=== PATIENT | female | born 1975 | race Caucasian/White ===

== ENCOUNTER 2017-09-19 12:09 | Inpatient (IN) | payer OTHER ==
[~2017-09-19] VITALS: Ht 165.1 cm; Wt 151.9 kg
[2017-09-19] MEDS ORDERED: ASPIRIN 81 MG TABLET CHEW ONE (12:46)
[2017-09-19] MEDS ORDERED: ASPIRIN 81 MG TABLET CHEW PO ONE (13:00)
[2017-09-19 13:16] LABS: MEAN CORPUSCULAR HEMOGLOBIN 21.4 pg (27.0-34.8); MEAN CORPUSCULAR HGB CONC 30.8 g/dL (32.4-35.8); MEAN CORPUSCULAR VOLUME 69.6 fL (80-100); MEAN PLATELET VOLUME 8.5 fL (7.4-10.4); PLATELET COUNT 338 x10^3/uL (130-400); RED BLOOD COUNT 4.58 x10^6/uL (3.82-5.3); RED CELL DISTRIBUTION WIDTH 20.5 % (9.6-15.2)
[2017-09-19 13:21] LABS: ALANINE AMINOTRANSFERASE 24 U/L (12-78); ALBUMIN 2.4 g/dL (3.4-5.0); ANION GAP 7 mmol/L (5-15); CALCIUM 8.7 mg/dL (8.5-10.1); CHLORIDE 108 mmol/L (98-107); CREATININE 2.26 mg/dL (0.55-1.02)
[2017-09-19 13:26] LABS: ALKALINE PHOSPHATASE 116 U/L (45-117); BASOPHILS # (AUTO) 0.14 x10^3/uL (0-0.1); BASOPHILS % (AUTO) 2 % (0-1); BILIRUBIN,TOTAL 0.5 mg/dL (0.2-1.0); EOSINOPHILS # (AUTO) 0.21 x10^3/uL (0-0.4); EOSINOPHILS % (AUTO) 3 % (1-7); LYMPHOCYTES # (AUTO) 1.74 x10^3/uL (1-3.4); LYMPHOCYTES % (AUTO) 21 % (22-44); MD MORPH REVIEW ONLY; MONOCYTES # (AUTO) 0.52 x10^3/uL (0.2-0.8); MONOCYTES % (AUTO) 6 % (2-9); NEUTROPHILS # (AUTO) 5.83 x10^3/uL (1.8-6.8); NEUTROPHILS % (AUTO) 69 % (42-75); TOTAL PROTEIN 7.1 g/dL (6.4-8.2); TROPONIN I 0.021 ng/mL (0.000-0.045)
[2017-09-19 13:27] LABS: ANISOCYTOSIS 2+; MICROCYTOSIS 1+; POLYCHROMASIA 1+
[2017-09-19 13:28] LABS: <PLATELET ESTIMATE> ADEQUATE; <PLT MORPHOLOGY> NORMAL PLT MORPH
[2017-09-19] MEDS ORDERED: SODIUM CHLORIDE FLUSH 10ML SYR IVF ONE (14:00)
[2017-09-19] MEDS ORDERED: FUROSEMIDE 40 MG/4 ML IV ONE (14:00)
[2017-09-19] MEDS ORDERED: ALPR1TAB5 PO (14:49)
[2017-09-19] MEDS ORDERED: AMLO10TA2 PO (14:49)
[2017-09-19] MEDS ORDERED: VALS1TAB24 PO (14:49)
[2017-09-19] MEDS ORDERED: METF-688 PO (14:49)
[2017-09-19] MEDS ORDERED: FUROSEMIDE 40 MG/4 ML ONE (14:51)
[2017-09-19 15:28] LABS: FREE T4 (FREE THYROXINE) 1.48 ng/dL (0.76-1.46); THYROID STIMULATING HORMONE 2.31 mIU/L (0.358-3.740)
[2017-09-19] MEDS ORDERED: LORazepam 0.5MG TABLET PO PRN (15:30)
[2017-09-19] MEDS ORDERED: ACETAMINOPHEN 325 MG TABLET PO PRN (15:30)
[2017-09-19] MEDS ORDERED: TRAZODONE 50MG TABLET PO PRN (15:30)
[2017-09-19] MEDS ORDERED: BISACODYL 10 MG SUPP PR PRN (15:30)
[2017-09-19 15:52] LABS: INTERNATIONAL NORMALIZED RATIO 0.97 (0.93-1.1); PROTHROMBIN TIME 10.1 Seconds (9.6-11.5)
[2017-09-19 18:00] VITALS: BP 187/100
[2017-09-19] MEDS: HEPARIN 5,000 UNITS/ML, 1ML SQ SCH (18:08)
[2017-09-19 18:19] VITALS: BP 187/106
[2017-09-19 18:42] VITALS: BP 185/100
[2017-09-19 20:01] VITALS: BP 176/103
[2017-09-19 20:01] LABS: AMPHETAMINE SCREEN, URINE Negative (Negative); BARBITURATE SCREEN, URINE Negative (Negative); BENZODIAZEPINE SCREEN, URINE Negative (Negative); CANNABINOID SCREEN, URINE Negative (Negative); COCAINE SCREEN, URINE Negative (Negative); METHADONE SCREEN, URINE Negative (Negative); OPIATE SCREEN, URINE Negative (Negative); TOTAL PROTEIN,URINE RANDOM 177 mg/dL (0-12)
[2017-09-19 20:02] LABS: CREATININE,URINE RANDOM < 13.00 mg/dL; PROTEIN/CREATININE RATIO,URINE 13615 (0-200)
[2017-09-19 20:18] LABS: OCCULT BLOOD NEGATIVE (NEGATIVE)
[2017-09-19] MEDS: SODIUM CHLORIDE FLUSH 10ML SYR IVF SCH (21:16)
[2017-09-19 21:25] VITALS: BP 163/90
[2017-09-19 23:35] LABS: MICROSCOPIC AUTO
[2017-09-19 23:36] LABS: CULTURE INDICATED? NO
[2017-09-20] VITALS (7 sets, daily range): BP systolic 110–196; BP diastolic 74–110
[2017-09-20] MEDS ORDERED: hydrALAzine 20 MG/ML, 1ML ONE (04:48)
[2017-09-20] MEDS: HEPARIN 5,000 UNITS/ML, 1ML SQ SCH (04:54)
[2017-09-20] MEDS: hydrALAzine 20 MG/ML, 1ML IV PRN ×3 (04:54→23:27)
[2017-09-20 05:18] LABS: CHLORIDE 109 mmol/L (98-107)
[2017-09-20 05:24] LABS: % IRON SATURATION 7 % (20-55); ALANINE AMINOTRANSFERASE 22 U/L (12-78); ALKALINE PHOSPHATASE 101 U/L (45-117); ANION GAP 9 mmol/L (5-15); BILIRUBIN,TOTAL 0.4 mg/dL (0.2-1.0); CALCIUM 8.3 mg/dL (8.5-10.1); CREATININE 2.31 mg/dL (0.55-1.02); IRON LEVEL 20 mcg/dL (50-170); TOTAL IRON BINDING CAPACITY 286 mcg/dL (250-450); TOTAL PROTEIN 6.4 g/dL (6.4-8.2)
[2017-09-20 05:47] LABS: ABSOLUTE RETICS # 0.108 x10^6/uL (0.5-2.5); RETICULOCYTE COUNT % 2.78 % (0.5-1.5)
[2017-09-20 05:50] LABS: BASOPHILS # (AUTO) 0.01 x10^3/uL (0-0.1); BASOPHILS % (AUTO) 0 % (0-1); EOSINOPHILS # (AUTO) 0.18 x10^3/uL (0-0.4); EOSINOPHILS % (AUTO) 3 % (1-7); LYMPHOCYTES # (AUTO) 1.49 x10^3/uL (1-3.4); LYMPHOCYTES % (AUTO) 25 % (22-44); MD NO; MEAN CORPUSCULAR HEMOGLOBIN 21.9 pg (27.0-34.8); MEAN CORPUSCULAR HGB CONC 31.2 g/dL (32.4-35.8); MEAN CORPUSCULAR VOLUME 70.3 fL (80-100); MEAN PLATELET VOLUME 8.4 fL (7.4-10.4); MONOCYTES % (AUTO) 7 % (2-9); NEUTROPHILS # (AUTO) 3.93 x10^3/uL (1.8-6.8); NEUTROPHILS % (AUTO) 65 % (42-75); PLATELET COUNT 268 x10^3/uL (130-400); RED BLOOD COUNT 3.88 x10^6/uL (3.82-5.3); RED CELL DISTRIBUTION WIDTH 21.4 % (9.6-15.2)
[2017-09-20 06:00] LABS: HEMOGLOBIN A1C 9.5 % (4.2-6.3)
[2017-09-20] MEDS: SODIUM CHLORIDE FLUSH 10ML SYR IVF SCH ×2 (09:19→20:14)
[2017-09-20] MEDS: PANTOPROZOLE 40MG TABLET PO SCH (09:19)
[2017-09-20 10:53] LABS: HCT (SEDRATE) 28.9 % (34.6-47.8)
[2017-09-20 10:55] LABS: CALCIUM 8.5 mg/dL (8.5-10.1)
[2017-09-20] MEDS: IRON SUCROSE COMPLEX 100MG/5ML IV SCH (11:16)
[2017-09-20] MEDS: VALSARTAN 160 MG TABLET PO SCH ×2 (11:17→20:14)
[2017-09-20] MEDS: METOPROLOL TARTRATE 25 MG TABLET PO SCH ×2 (11:17→18:13)
[2017-09-20] MEDS: INSULIN LISPRO 100 UNITS/ML, PEN SQ-INSULIN SCH ×3 (12:17→20:14)
[2017-09-20 18:34] LABS: ANA SCREEN NEGATIVE (Negative)
[2017-09-21] VITALS (7 sets, daily range): BP systolic 122–188; BP diastolic 75–103
[2017-09-21] MEDS: METOPROLOL TARTRATE 25 MG TABLET PO SCH (05:21)
[2017-09-21 05:55] LABS: BASOPHILS # (AUTO) 0.01 x10^3/uL (0-0.1); BASOPHILS % (AUTO) 0 % (0-1); EOSINOPHILS # (AUTO) 0.14 x10^3/uL (0-0.4); EOSINOPHILS % (AUTO) 2 % (1-7); LYMPHOCYTES # (AUTO) 1.33 x10^3/uL (1-3.4); LYMPHOCYTES % (AUTO) 21 % (22-44); MD NO; MEAN CORPUSCULAR HEMOGLOBIN 21.7 pg (27.0-34.8); MEAN CORPUSCULAR HGB CONC 31.2 g/dL (32.4-35.8); MEAN CORPUSCULAR VOLUME 69.4 fL (80-100); MEAN PLATELET VOLUME 8.7 fL (7.4-10.4); MONOCYTES % (AUTO) 8 % (2-9); NEUTROPHILS # (AUTO) 4.51 x10^3/uL (1.8-6.8); NEUTROPHILS % (AUTO) 70 % (42-75); PLATELET COUNT 272 x10^3/uL (130-400); RED BLOOD COUNT 3.92 x10^6/uL (3.82-5.3); RED CELL DISTRIBUTION WIDTH 21.1 % (9.6-15.2)
[2017-09-21 06:06] LABS: ALBUMIN 2.1 g/dL (3.4-5.0); ANION GAP 8 mmol/L (5-15); CALCIUM 8.1 mg/dL (8.5-10.1); CHLORIDE 107 mmol/L (98-107); CREATININE 2.43 mg/dL (0.55-1.02)
[2017-09-21 06:10] LABS: ALANINE AMINOTRANSFERASE 25 U/L (12-78); ALKALINE PHOSPHATASE 114 U/L (45-117); BILIRUBIN,TOTAL 0.4 mg/dL (0.2-1.0); TOTAL PROTEIN 6.3 g/dL (6.4-8.2)
[2017-09-21] MEDS: INSULIN LISPRO 100 UNITS/ML, PEN SQ-INSULIN SCH ×4 (07:00→20:46)
[2017-09-21] MEDS: PANTOPROZOLE 40MG TABLET PO SCH (08:30)
[2017-09-21] MEDS: VALSARTAN 160 MG TABLET PO SCH ×2 (08:30→20:46)
[2017-09-21] MEDS: SODIUM CHLORIDE FLUSH 10ML SYR IVF SCH ×2 (08:33→20:45)
[2017-09-21] MEDS ORDERED: ERGOCALCIFEROL 50,000 UNIT CAPSULE PO SCH (10:00)
[2017-09-21] MEDS: FUROSEMIDE 40 MG TABLET PO SCH (11:18)
[2017-09-21] MEDS: IRON SUCROSE COMPLEX 100MG/5ML IV SCH (11:18)
[2017-09-21] MEDS ORDERED: MIDAZOLAM 1 MG/ML, 2ML ONE ×2 (12:59)
[2017-09-21] MEDS ORDERED: FENTANYL PF 100 MCG/2ML ONE (12:59)
[2017-09-21] MEDS ORDERED: NALOXONE 1 MG/ML, 2ML ONE (12:59)
[2017-09-21] MEDS ORDERED: FLUMAZENIL 0.1 MG/1 ML, 5ML ONE (12:59)
[2017-09-21] MEDS: AMLODIPINE 5 MG TABLET PO SCH (15:03)
[2017-09-21] MEDS: hydrALAzine 20 MG/ML, 1ML IV PRN (17:07)
[2017-09-21] MEDS: METOPROLOL TARTRATE 50 MG TABLET PO SCH (18:05)
[2017-09-21] MEDS: INSULIN GLARGINE 100 UNITS/ML, PEN SQ-INSULIN SCH (20:46)
[2017-09-22] VITALS (9 sets, daily range): BP systolic 128–207; BP diastolic 70–97
[2017-09-22] MEDS: METOPROLOL TARTRATE 50 MG TABLET PO SCH ×2 (05:45→18:00)
[2017-09-22 06:12] LABS: CHLORIDE 106 mmol/L (98-107)
[2017-09-22 06:16] LABS: BASOPHILS # (AUTO) 0.06 x10^3/uL (0-0.1); BASOPHILS % (AUTO) 1 % (0-1); EOSINOPHILS # (AUTO) 0.25 x10^3/uL (0-0.4); EOSINOPHILS % (AUTO) 3 % (1-7); LYMPHOCYTES # (AUTO) 1.75 x10^3/uL (1-3.4); LYMPHOCYTES % (AUTO) 21 % (22-44); MD NO; MEAN CORPUSCULAR HEMOGLOBIN 22.2 pg (27.0-34.8); MEAN CORPUSCULAR HGB CONC 31.3 g/dL (32.4-35.8); MEAN CORPUSCULAR VOLUME 70.9 fL (80-100); MEAN PLATELET VOLUME 8.4 fL (7.4-10.4); MONOCYTES % (AUTO) 7 % (2-9); NEUTROPHILS % (AUTO) 68 % (42-75); PLATELET COUNT 295 x10^3/uL (130-400); RED BLOOD COUNT 3.92 x10^6/uL (3.82-5.3); RED CELL DISTRIBUTION WIDTH 21.8 % (9.6-15.2)
[2017-09-22 06:18] LABS: ALANINE AMINOTRANSFERASE 31 U/L (12-78); ALKALINE PHOSPHATASE 92 U/L (45-117); ANION GAP 9 mmol/L (5-15); BILIRUBIN,TOTAL 0.6 mg/dL (0.2-1.0); CREATININE 2.57 mg/dL (0.55-1.02); TOTAL PROTEIN 5.8 g/dL (6.4-8.2)
[2017-09-22] MEDS ORDERED: LORazepam 2 MG/ML, 1ML IVPush ONE ×2 (08:00→13:30)
[2017-09-22] MEDS: INSULIN LISPRO 100 UNITS/ML, PEN SQ-INSULIN SCH ×4 (08:07→20:20)
[2017-09-22] MEDS: IRON SUCROSE COMPLEX 100MG/5ML IV SCH (10:23)
[2017-09-22] MEDS: FUROSEMIDE 40 MG TABLET PO SCH (10:23)
[2017-09-22] MEDS: VALSARTAN 160 MG TABLET PO SCH ×2 (10:23→20:17)
[2017-09-22] MEDS: PANTOPROZOLE 40MG TABLET PO SCH (10:23)
[2017-09-22] MEDS: AMLODIPINE 5 MG TABLET PO SCH ×2 (10:23→20:17)
[2017-09-22] MEDS: SODIUM CHLORIDE FLUSH 10ML SYR IVF SCH ×2 (10:27→20:18)
[2017-09-22] MEDS ORDERED: FENTANYL PF 100 MCG/2ML ONE (14:41)
[2017-09-22] MEDS ORDERED: MIDAZOLAM 1 MG/ML, 2ML ONE (14:41)
[2017-09-22] MEDS: hydrALAzine 20 MG/ML, 1ML IV PRN (16:08)
[2017-09-22] MEDS: ONDANSETRON 2MG/ML, 2ML IVPush PRN (16:50)
[2017-09-22] MEDS ORDERED: hydrALAzine 20 MG/ML, 1ML IV ONE (17:30)
[2017-09-22] MEDS ORDERED: MORPHINE SULFATE 4 MG/ML, 1ML IVPush ONE (17:30)
[2017-09-22] MEDS ORDERED: METOPROLOL 1 MG/ML, 5ML IVPush ONE (18:00)
[2017-09-22] MEDS ORDERED: PROMETHAZINE 25 MG/ML, 1ML IM ONE (20:00)
[2017-09-22] MEDS: INSULIN GLARGINE 100 UNITS/ML, PEN SQ-INSULIN SCH (20:20)
[2017-09-23 01:33] VITALS: BP 159/86
[2017-09-23] MEDS: ONDANSETRON 2MG/ML, 2ML IVPush PRN (01:41)
[2017-09-23 05:57] VITALS: BP 147/75
[2017-09-23] MEDS: METOPROLOL TARTRATE 50 MG TABLET PO SCH (05:59)
[2017-09-23] MEDS: SODIUM CHLORIDE 0.9% 500 ML IV SCH ×2 (06:47→07:44)
[2017-09-23] MEDS ORDERED: SODIUM CHLORIDE 0.9%, 250ML IVBOLUS ONE (07:00)
[2017-09-23 08:30] VITALS: BP 126/74
[2017-09-23] MEDS: VALSARTAN 160 MG TABLET PO SCH (08:45)
[2017-09-23] MEDS: PANTOPROZOLE 40MG TABLET PO SCH (08:46)
[2017-09-23] MEDS: AMLODIPINE 5 MG TABLET PO SCH (08:46)
[2017-09-23] MEDS: FUROSEMIDE 40 MG TABLET PO SCH (08:47)
[2017-09-23] MEDS: INSULIN LISPRO 100 UNITS/ML, PEN SQ-INSULIN SCH ×2 (08:48→11:00)
[2017-09-23] MEDS: SODIUM CHLORIDE FLUSH 10ML SYR IVF SCH (08:53)
[2017-09-23] MEDS ORDERED: VALS160T3 PO (10:16)
[2017-09-23] MEDS ORDERED: ERGO500017 PO (10:16)
[2017-09-23] MEDS ORDERED: FURO40TA6 PO (10:16)
[2017-09-23] MEDS ORDERED: FERR324T5 PO (10:16)
[2017-09-23] MEDS ORDERED: INSU100I13 SQ-INSULIN (10:16)
[2017-09-23] MEDS ORDERED: METO50TA82 PO (10:16)
[2017-09-23] MEDS ORDERED: AMLO5TAB2 PO (10:16)
[2017-09-23] MEDS ORDERED: FLU VACC QS2017-18 (36MOS+) UP/PF 0.5 ML IM-VACC ONE (11:30)
[2017-09-23] MEDS: IRON SUCROSE COMPLEX 100MG/5ML IV SCH (11:33)
== END 2017-09-23 12:15 | disposition home or self-care (01) | DRG 682 ==
LOC: ED 15:20 → EDIP 15:21 → ED 15:44 → 4WST 17:39 → DCLOUNGE 09-23 12:10
PROVIDERS: ADMIT Internal Medicine; ATTEND Hospitalist
PROC: 0TB13ZX Excision of Left Kidney, Percutaneous Approach, Diagnostic (ICD-10-PCS; principal; 2017-09-22)
DX: N17.9 Acute kidney failure, unspecified (principal); E43 Unspecified severe protein-calorie malnutrition; E11.22 Type 2 diabetes mellitus with diabetic chronic kidney disease; I16.9 Hypertensive crisis, unspecified; Z68.43 Body mass index [BMI] 50.0-59.9, adult; D50.9 Iron deficiency anemia, unspecified; E66.01 Morbid (severe) obesity due to excess calories; N25.0 Renal osteodystrophy; E11.65 Type 2 diabetes mellitus with hyperglycemia; F41.9 Anxiety disorder, unspecified; Z53.8 Procedure and treatment not carried out for other reasons; I12.9 Hypertensive chronic kidney disease with stage 1 through stage 4 chronic kidney disease, or unspecified chronic kidney disease; N18.9 Chronic kidney disease, unspecified; Z83.2 Family history of diseases of the blood and blood-forming organs and certain disorders involving the immune mechanism; Z91.19 Patient's noncompliance with other medical treatment and regimen; Z71.3 Dietary counseling and surveillance; Z23 Encounter for immunization
CPT/HCPCS: 36415; 50200; 71046; 76770; 76830; 77012; 80053; 80074; 80307; 81001; 82043; 82272; 82306; 82310; 82330; 82570; 82728; 82962; 83036; 83540; 83550; 83735; 83880; 83970; 84100; 84155; 84156; 84165; 84166; 84439; 84443; 84484; 84550; 84702; 85025; 85045; 85610; 85651; 86038; 86160; 86162; 86225; 86430; 88300; 88329; 90686; 93005; 93306; 96374; 99156; 99157; J1644; J1756; J1940; J2250; J2405; J2550; J3010; J0360; J1815; J2060; J2310; J7040; J7050

== ENCOUNTER 2018-01-18 10:44 | Inpatient (IN) | payer OTHER ==
[~2018-01-18] VITALS: Ht 167.6 cm; Wt 116.7 kg
[~2018-01-18 10:44] MED LIST: ALPR1TAB5 PO; AMLO10TA2 PO; AMLO5TAB2 PO; ERGO500017 PO; FERR324T5 PO; FURO40TA6 PO; INSU100I13 SQ-INSULIN; METF-688 PO; METO50TA82 PO; METO5TAB57 PO; ONDA4TAB10 PO; VALS160T3 PO; VALS1TAB24 PO
[2018-01-18 11:30] LABS: BASOPHILS # (AUTO) 0.05 x10^3/uL (0-0.1); BASOPHILS % (AUTO) 1 % (0-1); EOSINOPHILS # (AUTO) 0.03 x10^3/uL (0-0.4); EOSINOPHILS % (AUTO) 0 % (1-7); LYMPHOCYTES # (AUTO) 1.64 x10^3/uL (1-3.4); LYMPHOCYTES % (AUTO) 14 % (22-44); MD NO; MEAN CORPUSCULAR HEMOGLOBIN 27.6 pg (27.0-34.8); MEAN CORPUSCULAR HGB CONC 33.5 g/dL (32.4-35.8); MEAN CORPUSCULAR VOLUME 82.3 fL (80-100); MEAN PLATELET VOLUME 7.5 fL (7.4-10.4); MONOCYTES # (AUTO) 0.87 x10^3/uL (0.2-0.8); MONOCYTES % (AUTO) 8 % (2-9); NEUTROPHILS # (AUTO) 9.07 x10^3/uL (1.8-6.8); NEUTROPHILS % (AUTO) 78 % (42-75); PLATELET COUNT 558 x10^3/uL (130-400); RED BLOOD COUNT 4.26 x10^6/uL (3.82-5.3); RED CELL DISTRIBUTION WIDTH 14.9 % (9.6-15.2)
[2018-01-18 11:45] LABS: CHLORIDE 98 mmol/L (98-107)
[2018-01-18 11:52] LABS: ALANINE AMINOTRANSFERASE 46 U/L (12-78); ALBUMIN 2.2 g/dL (3.4-5.0); ALKALINE PHOSPHATASE 442 U/L (45-117); ANION GAP 13 mmol/L (5-15); CALCIUM 9.4 mg/dL (8.5-10.1)
[2018-01-18 12:07] LABS: INTERNATIONAL NORMALIZED RATIO 0.97 (0.93-1.1); PROTHROMBIN TIME 10.1 Seconds (9.6-11.5)
[2018-01-18] MEDS ORDERED: SPIR25TA3 PO (12:37)
[2018-01-18] MEDS ORDERED: FURO80TA77 PO (12:37)
[2018-01-18] MEDS ORDERED: HYDROXYZINE (12:37)
[2018-01-18] MEDS ORDERED: VALS320T2 PO (12:37)
[2018-01-18] MEDS ORDERED: AMLO10TA2 PO (12:37)
[2018-01-18] MEDS ORDERED: INSU500V SQ (12:37)
[2018-01-18] MEDS ORDERED: ATOR-2 PO (12:38)
[2018-01-18] MEDS ORDERED: PROMETHAZINE 25 MG/ML, 1ML IM ONE (14:00)
[2018-01-18] MEDS ORDERED: GLUCAGON 1 MG IM PRN (14:30)
[2018-01-18] MEDS ORDERED: DOCUSATE 100 MG CAPSULE PO PRN (14:30)
[2018-01-18] MEDS ORDERED: DEXTROSE 50%, 50ML SYRINGE IVPush PRN (14:30)
[2018-01-18] MEDS ORDERED: BISACODYL 10 MG SUPP PR PRN (14:30)
[2018-01-18] MEDS ORDERED: POLYETHYLENE GLYCOL 17 GM PACKET PO PRN (14:30)
[2018-01-18] MEDS ORDERED: DEXTROSE 4 GM TAB.CHEW PO PRN (14:30)
[2018-01-18 14:45] VITALS: BP 118/73
[2018-01-18] MEDS ORDERED: PNEUMOCOCCAL 23 VACCINE IM-VACC ONE (15:30)
[2018-01-18 15:48] LABS: HEMOGLOBIN A1C 8.6 % (4.2-6.3)
[2018-01-18] MEDS: INSULIN LISPRO 100 UNITS/ML, PEN SQ-INSULIN SCH ×2 (16:00→21:00)
[2018-01-18] MEDS: SODIUM BICARBONATE 8.4% 150 MEQ in DEXTROSE 5% 1,000 ML IV SCH (16:49)
[2018-01-18] MEDS: METOPROLOL TARTRATE 50 MG TABLET PO SCH (17:45)
[2018-01-18 19:00] VITALS: BP 112/72
[2018-01-18 19:36] LABS: CULTURE INDICATED? YES; MICROSCOPIC INDICATED
[2018-01-18] MEDS: SODIUM CHLORIDE FLUSH 10ML SYR IVF SCH (21:00)
[2018-01-19 01:06] LABS: STOOL FOR LEUKOCYTES NONE SEEN (NEGATIVE)
[2018-01-19 01:08] LABS: OCCULT BLOOD NEGATIVE (NEGATIVE)
[2018-01-19 01:43] VITALS: BP 111/69
[2018-01-19 05:19] LABS: ALBUMIN 1.6 g/dL (3.4-5.0); ANION GAP 11 mmol/L (5-15); CALCIUM 8.1 mg/dL (8.5-10.1); CHLORIDE 99 mmol/L (98-107)
[2018-01-19 05:25] LABS: % IRON SATURATION 24 % (20-55); ALANINE AMINOTRANSFERASE 34 U/L (12-78); ALKALINE PHOSPHATASE 324 U/L (45-117); BILIRUBIN,TOTAL 0.7 mg/dL (0.2-1.0); CREATININE 4.07 mg/dL (0.55-1.02); IRON LEVEL 24 mcg/dL (50-170); TOTAL IRON BINDING CAPACITY 100 mcg/dL (250-450); TOTAL PROTEIN 7.2 g/dL (6.4-8.2)
[2018-01-19 05:33] LABS: BASOPHILS % (AUTO) 0 % (0-1); EOSINOPHILS # (AUTO) 0.03 x10^3/uL (0-0.4); EOSINOPHILS % (AUTO) 0 % (1-7); LYMPHOCYTES # (AUTO) 1.76 x10^3/uL (1-3.4); LYMPHOCYTES % (AUTO) 19 % (22-44); MD NO; MEAN CORPUSCULAR HEMOGLOBIN 27.4 pg (27.0-34.8); MEAN CORPUSCULAR HGB CONC 33.4 g/dL (32.4-35.8); MEAN CORPUSCULAR VOLUME 82.1 fL (80-100); MEAN PLATELET VOLUME 7.5 fL (7.4-10.4); MONOCYTES % (AUTO) 10 % (2-9); NEUTROPHILS % (AUTO) 71 % (42-75); PLATELET COUNT 426 x10^3/uL (130-400); RED BLOOD COUNT 3.56 x10^6/uL (3.82-5.3); RED CELL DISTRIBUTION WIDTH 14.8 % (9.6-15.2)
[2018-01-19] MEDS: METOPROLOL TARTRATE 50 MG TABLET PO SCH ×2 (05:46→16:57)
[2018-01-19] MEDS: SODIUM BICARBONATE 8.4% 150 MEQ in DEXTROSE 5% 1,000 ML IV SCH ×3 (06:16→23:16)
[2018-01-19 06:27] LABS: CLOSTRIDIUM DIFFICILE ANTIGEN NEGATIVE; CLOSTRIDIUM DIFFICILE TOXIN NEGATIVE (Negative)
[2018-01-19] MEDS: INSULIN LISPRO 100 UNITS/ML, PEN SQ-INSULIN SCH ×4 (07:00→23:27)
[2018-01-19 07:29] VITALS: BP 122/73
[2018-01-19] MEDS: SODIUM CHLORIDE FLUSH 10ML SYR IVF SCH ×2 (09:00→23:17)
[2018-01-19] MEDS: TEMPLATE NON-FORMULARY MED. (Amlodipine Besylate (Amlodipine Besylate**) 10 MG) PO SCH (09:00)
[2018-01-19] MEDS: FAMOTIDINE 20 MG TABLET PO SCH (09:00)
[2018-01-19] MEDS ORDERED: LOPERAMIDE 2 MG CAPSULE PO PRN (11:00)
[2018-01-19] MEDS ORDERED: LIDOCAINE 2%-EPI 1:100K, 20ML INFIL ONE (12:00)
[2018-01-19 14:00] VITALS: BP 131/76
[2018-01-19 20:51] VITALS: BP_SYST 106; BP_DIAS 58; BP_DIAS 68
[2018-01-20 01:55] VITALS: BP 127/77
[2018-01-20 05:03] LABS: BASOPHILS # (AUTO) 0.03 x10^3/uL (0-0.1); BASOPHILS % (AUTO) 0 % (0-1); EOSINOPHILS # (AUTO) 0.05 x10^3/uL (0-0.4); EOSINOPHILS % (AUTO) 1 % (1-7); LYMPHOCYTES # (AUTO) 1.35 x10^3/uL (1-3.4); LYMPHOCYTES % (AUTO) 14 % (22-44); MD NO; MEAN CORPUSCULAR HEMOGLOBIN 27.8 pg (27.0-34.8); MEAN CORPUSCULAR HGB CONC 33.7 g/dL (32.4-35.8); MEAN CORPUSCULAR VOLUME 82.5 fL (80-100); MEAN PLATELET VOLUME 7.6 fL (7.4-10.4); MONOCYTES % (AUTO) 9 % (2-9); NEUTROPHILS # (AUTO) 7.42 x10^3/uL (1.8-6.8); NEUTROPHILS % (AUTO) 76 % (42-75); PLATELET COUNT 428 x10^3/uL (130-400); RED CELL DISTRIBUTION WIDTH 14.9 % (9.6-15.2)
[2018-01-20 05:05] LABS: ALBUMIN 1.6 g/dL (3.4-5.0); ANION GAP 8 mmol/L (5-15); CALCIUM 7.7 mg/dL (8.5-10.1); CHLORIDE 92 mmol/L (98-107); CREATININE 3.59 mg/dL (0.55-1.02)
[2018-01-20] MEDS: METOPROLOL TARTRATE 50 MG TABLET PO SCH ×2 (05:48→18:00)
[2018-01-20] MEDS: INSULIN LISPRO 100 UNITS/ML, PEN SQ-INSULIN SCH ×4 (07:00→23:40)
[2018-01-20] MEDS: SODIUM BICARBONATE 8.4% 150 MEQ in DEXTROSE 5% 1,000 ML IV SCH (07:16)
[2018-01-20 07:25] VITALS: BP 126/74
[2018-01-20] MEDS: FAMOTIDINE 20 MG TABLET PO SCH (08:50)
[2018-01-20] MEDS: SODIUM CHLORIDE FLUSH 10ML SYR IVF SCH ×2 (08:51→22:42)
[2018-01-20] MEDS: TEMPLATE NON-FORMULARY MED. (Amlodipine Besylate (Amlodipine Besylate**) 10 MG) PO SCH (09:00)
[2018-01-20] MEDS: HEMORRHOIDAL OINT, 28 GM (PREP H) RC PRN (12:33)
[2018-01-20] MEDS: ONDANSETRON ODT 4 MG PO PRN ×2 (13:38→22:41)
[2018-01-20 15:15] VITALS: BP 124/75
[2018-01-20 20:16] VITALS: BP 123/76
[2018-01-20] MEDS: ATORVASTATIN 20 MG TABLET PO SCH (22:41)
[2018-01-21 02:41] VITALS: BP 106/67
[2018-01-21 05:23] LABS: BASOPHILS # (AUTO) 0.05 x10^3/uL (0-0.1); BASOPHILS % (AUTO) 0 % (0-1); EOSINOPHILS # (AUTO) 0.01 x10^3/uL (0-0.4); EOSINOPHILS % (AUTO) 0 % (1-7); LYMPHOCYTES # (AUTO) 1.74 x10^3/uL (1-3.4); LYMPHOCYTES % (AUTO) 15 % (22-44); MD NO; MEAN CORPUSCULAR HEMOGLOBIN 27.5 pg (27.0-34.8); MEAN CORPUSCULAR HGB CONC 33.3 g/dL (32.4-35.8); MEAN CORPUSCULAR VOLUME 82.6 fL (80-100); MEAN PLATELET VOLUME 7.6 fL (7.4-10.4); MONOCYTES # (AUTO) 0.91 x10^3/uL (0.2-0.8); MONOCYTES % (AUTO) 8 % (2-9); NEUTROPHILS # (AUTO) 8.82 x10^3/uL (1.8-6.8); NEUTROPHILS % (AUTO) 77 % (42-75); PLATELET COUNT 407 x10^3/uL (130-400); RED BLOOD COUNT 3.44 x10^6/uL (3.82-5.3); RED CELL DISTRIBUTION WIDTH 14.9 % (9.6-15.2)
[2018-01-21 05:30] LABS: ALANINE AMINOTRANSFERASE 21 U/L (12-78); ALBUMIN 1.4 g/dL (3.4-5.0); ANION GAP 7 mmol/L (5-15); CHLORIDE 86 mmol/L (98-107); CREATININE 3.89 mg/dL (0.55-1.02)
[2018-01-21 05:33] LABS: ALKALINE PHOSPHATASE 235 U/L (45-117); BILIRUBIN,TOTAL 0.9 mg/dL (0.2-1.0); TOTAL PROTEIN 6.8 g/dL (6.4-8.2)
[2018-01-21] MEDS: METOPROLOL TARTRATE 50 MG TABLET PO SCH ×2 (06:03→17:06)
[2018-01-21] MEDS: INSULIN LISPRO 100 UNITS/ML, PEN SQ-INSULIN SCH ×4 (07:00→21:40)
[2018-01-21] MEDS: FAMOTIDINE 20 MG TABLET PO SCH (08:59)
[2018-01-21] MEDS: TEMPLATE NON-FORMULARY MED. (Amlodipine Besylate (Amlodipine Besylate**) 10 MG) PO SCH (09:00)
[2018-01-21 09:03] VITALS: BP 132/81
[2018-01-21] MEDS: SODIUM CHLORIDE FLUSH 10ML SYR IVF SCH ×2 (10:22→21:42)
[2018-01-21 11:20] LABS: CULTURE INDICATED? YES; MICROSCOPIC INDICATED
[2018-01-21] MEDS: ONDANSETRON ODT 4 MG PO PRN ×2 (11:21→18:21)
[2018-01-21 13:12] VITALS: BP 108/69
[2018-01-21 19:29] VITALS: BP 97/64
[2018-01-21] MEDS: ATORVASTATIN 20 MG TABLET PO SCH (21:42)
[2018-01-22 01:27] VITALS: BP 118/75
[2018-01-22 04:55] LABS: BASOPHILS # (AUTO) 0.04 x10^3/uL (0-0.1); BASOPHILS % (AUTO) 0 % (0-1); EOSINOPHILS # (AUTO) 0.21 x10^3/uL (0-0.4); EOSINOPHILS % (AUTO) 2 % (1-7); LYMPHOCYTES % (AUTO) 20 % (22-44); MD NO; MEAN CORPUSCULAR HEMOGLOBIN 27.8 pg (27.0-34.8); MEAN CORPUSCULAR HGB CONC 33.4 g/dL (32.4-35.8); MEAN CORPUSCULAR VOLUME 83.2 fL (80-100); MEAN PLATELET VOLUME 7.4 fL (7.4-10.4); MONOCYTES # (AUTO) 1.06 x10^3/uL (0.2-0.8); MONOCYTES % (AUTO) 9 % (2-9); NEUTROPHILS # (AUTO) 7.73 x10^3/uL (1.8-6.8); NEUTROPHILS % (AUTO) 69 % (42-75); PLATELET COUNT 387 x10^3/uL (130-400); RED BLOOD COUNT 3.23 x10^6/uL (3.82-5.3); RED CELL DISTRIBUTION WIDTH 14.3 % (9.6-15.2)
[2018-01-22 05:04] LABS: ALANINE AMINOTRANSFERASE 20 U/L (12-78); ALBUMIN 1.4 g/dL (3.4-5.0); ANION GAP 10 mmol/L (5-15); CALCIUM 7.5 mg/dL (8.5-10.1); CHLORIDE 85 mmol/L (98-107); CREATININE 3.97 mg/dL (0.55-1.02)
[2018-01-22 05:10] LABS: ALKALINE PHOSPHATASE 231 U/L (45-117); BILIRUBIN,TOTAL 0.8 mg/dL (0.2-1.0); TOTAL PROTEIN 6.5 g/dL (6.4-8.2)
[2018-01-22] MEDS: METOPROLOL TARTRATE 50 MG TABLET PO SCH ×2 (06:35→17:23)
[2018-01-22 07:10] VITALS: BP 134/79
[2018-01-22] MEDS: FAMOTIDINE 20 MG TABLET PO SCH (08:12)
[2018-01-22] MEDS: SODIUM CHLORIDE FLUSH 10ML SYR IVF SCH ×2 (08:12→19:56)
[2018-01-22] MEDS: TEMPLATE NON-FORMULARY MED. (Amlodipine Besylate (Amlodipine Besylate**) 10 MG) PO SCH (09:00)
[2018-01-22] MEDS: INSULIN LISPRO 100 UNITS/ML, PEN SQ-INSULIN SCH (09:00)
[2018-01-22 12:52] VITALS: BP 105/56
[2018-01-22 19:32] VITALS: BP 126/70
[2018-01-22] MEDS: ATORVASTATIN 20 MG TABLET PO SCH (19:56)
[2018-01-23 01:59] VITALS: BP 121/74
[2018-01-23 05:49] LABS: ANION GAP 9 mmol/L (5-15); BASOPHILS # (AUTO) 0.03 x10^3/uL (0-0.1); BASOPHILS % (AUTO) 0 % (0-1); CALCIUM 8.5 mg/dL (8.5-10.1); CHLORIDE 86 mmol/L (98-107); EOSINOPHILS # (AUTO) 0.07 x10^3/uL (0-0.4); EOSINOPHILS % (AUTO) 1 % (1-7); LYMPHOCYTES # (AUTO) 1.42 x10^3/uL (1-3.4); LYMPHOCYTES % (AUTO) 15 % (22-44); MD NO; MEAN CORPUSCULAR HEMOGLOBIN 27.5 pg (27.0-34.8); MEAN CORPUSCULAR HGB CONC 33.5 g/dL (32.4-35.8); MEAN CORPUSCULAR VOLUME 81.9 fL (80-100); MEAN PLATELET VOLUME 7.4 fL (7.4-10.4); MONOCYTES # (AUTO) 0.87 x10^3/uL (0.2-0.8); MONOCYTES % (AUTO) 9 % (2-9); NEUTROPHILS % (AUTO) 75 % (42-75); PLATELET COUNT 437 x10^3/uL (130-400); RED BLOOD COUNT 3.54 x10^6/uL (3.82-5.3); RED CELL DISTRIBUTION WIDTH 14.6 % (9.6-15.2)
[2018-01-23] MEDS: METOPROLOL TARTRATE 50 MG TABLET PO SCH ×2 (05:49→17:07)
[2018-01-23 07:08] VITALS: BP 103/67
[2018-01-23] MEDS: INSULIN LISPRO 100 UNITS/ML, PEN SQ-INSULIN SCH (08:00)
[2018-01-23] MEDS: SODIUM CHLORIDE FLUSH 10ML SYR IVF SCH ×2 (08:00→20:04)
[2018-01-23] MEDS: FAMOTIDINE 20 MG TABLET PO SCH (08:00)
[2018-01-23] MEDS: TEMPLATE NON-FORMULARY MED. (Amlodipine Besylate (Amlodipine Besylate**) 10 MG) PO SCH (08:01)
[2018-01-23 13:54] VITALS: BP 109/71
[2018-01-23 20:00] VITALS: BP 123/62
[2018-01-23] MEDS: ATORVASTATIN 20 MG TABLET PO SCH (20:04)
[2018-01-24 04:48] VITALS: BP 116/72
[2018-01-24 05:29] LABS: BASOPHILS # (AUTO) 0.03 x10^3/uL (0-0.1); BASOPHILS % (AUTO) 0 % (0-1); EOSINOPHILS # (AUTO) 0.02 x10^3/uL (0-0.4); EOSINOPHILS % (AUTO) 0 % (1-7); LYMPHOCYTES # (AUTO) 1.12 x10^3/uL (1-3.4); LYMPHOCYTES % (AUTO) 12 % (22-44); MD NO; MEAN CORPUSCULAR HEMOGLOBIN 27.7 pg (27.0-34.8); MEAN CORPUSCULAR HGB CONC 33.2 g/dL (32.4-35.8); MEAN CORPUSCULAR VOLUME 83.4 fL (80-100); MEAN PLATELET VOLUME 7.5 fL (7.4-10.4); MONOCYTES % (AUTO) 9 % (2-9); NEUTROPHILS # (AUTO) 7.31 x10^3/uL (1.8-6.8); NEUTROPHILS % (AUTO) 79 % (42-75); PLATELET COUNT 411 x10^3/uL (130-400); RED BLOOD COUNT 3.43 x10^6/uL (3.82-5.3); RED CELL DISTRIBUTION WIDTH 14.4 % (9.6-15.2)
[2018-01-24 05:37] LABS: CHLORIDE 90 mmol/L (98-107)
[2018-01-24 05:44] LABS: ALANINE AMINOTRANSFERASE 22 U/L (12-78); ALBUMIN 1.4 g/dL (3.4-5.0); ALKALINE PHOSPHATASE 281 U/L (45-117); ANION GAP 9 mmol/L (5-15); BILIRUBIN,TOTAL 0.8 mg/dL (0.2-1.0); CALCIUM 8.2 mg/dL (8.5-10.1); CREATININE 4.14 mg/dL (0.55-1.02); TOTAL PROTEIN 6.4 g/dL (6.4-8.2)
[2018-01-24] MEDS: METOPROLOL TARTRATE 50 MG TABLET PO SCH ×2 (05:47→18:08)
[2018-01-24 06:52] VITALS: BP 121/72
[2018-01-24] MEDS: FAMOTIDINE 20 MG TABLET PO SCH (08:45)
[2018-01-24] MEDS: INSULIN LISPRO 100 UNITS/ML, PEN SQ-INSULIN SCH (08:45)
[2018-01-24] MEDS: SODIUM CHLORIDE FLUSH 10ML SYR IVF SCH ×2 (08:46→20:39)
[2018-01-24] MEDS: TEMPLATE NON-FORMULARY MED. (Amlodipine Besylate (Amlodipine Besylate**) 10 MG) PO SCH (09:00)
[2018-01-24 13:23] VITALS: BP 102/65
[2018-01-24] MEDS: HEMORRHOIDAL OINT, 28 GM (PREP H) RC PRN (13:45)
[2018-01-24 19:20] VITALS: BP 94/62
[2018-01-24] MEDS: ATORVASTATIN 20 MG TABLET PO SCH (20:39)
[2018-01-25 01:39] VITALS: BP 106/68
[2018-01-25] MEDS: METOPROLOL TARTRATE 50 MG TABLET PO SCH ×2 (04:52→18:08)
[2018-01-25 07:07] VITALS: BP 129/81
[2018-01-25] MEDS ORDERED: FENTANYL PF 100 MCG/2ML ONE ×2 (08:33→08:34)
[2018-01-25] MEDS ORDERED: MIDAZOLAM 1 MG/ML, 5ML ONE (08:34)
[2018-01-25] MEDS ORDERED: NALOXONE 1 MG/ML, 2ML ONE (08:34)
[2018-01-25] MEDS ORDERED: FLUMAZENIL 0.1 MG/1 ML, 5ML ONE (08:34)
[2018-01-25] MEDS ORDERED: LIDOCAINE 2%, 20ML ONE (08:46)
[2018-01-25] MEDS: TEMPLATE NON-FORMULARY MED. (Amlodipine Besylate (Amlodipine Besylate**) 10 MG) PO SCH (09:00)
[2018-01-25] MEDS: FAMOTIDINE 20 MG TABLET PO SCH (09:00)
[2018-01-25] MEDS: SODIUM CHLORIDE FLUSH 10ML SYR IVF SCH ×2 (09:00→20:52)
[2018-01-25] MEDS: INSULIN LISPRO 100 UNITS/ML, PEN SQ-INSULIN SCH (09:00)
[2018-01-25 14:29] VITALS: BP 149/81
[2018-01-25 19:31] VITALS: BP 125/73
[2018-01-25] MEDS: HEPARIN 5,000 UNITS/ML, 1ML SQ SCH (20:51)
[2018-01-25] MEDS: ATORVASTATIN 20 MG TABLET PO SCH (20:51)
[2018-01-26 02:19] VITALS: BP 99/64
[2018-01-26] MEDS: METOPROLOL TARTRATE 50 MG TABLET PO SCH ×2 (06:01→17:59)
[2018-01-26 08:00] VITALS: BP 108/72
[2018-01-26] MEDS: FAMOTIDINE 20 MG TABLET PO SCH (08:00)
[2018-01-26] MEDS: ONDANSETRON 2MG/ML, 2ML IVPush PRN ×2 (08:00→14:02)
[2018-01-26] MEDS: HEPARIN 5,000 UNITS/ML, 1ML SQ SCH ×3 (08:00→22:31)
[2018-01-26] MEDS ORDERED: AMLODIPINE 5 MG TABLET ONE (08:01)
[2018-01-26] MEDS: TEMPLATE NON-FORMULARY MED. (Amlodipine Besylate (Amlodipine Besylate**) 10 MG) PO SCH (08:02)
[2018-01-26] MEDS: SODIUM CHLORIDE FLUSH 10ML SYR IVF SCH ×2 (08:04→22:30)
[2018-01-26] MEDS: INSULIN LISPRO 100 UNITS/ML, PEN SQ-INSULIN SCH (08:07)
[2018-01-26 08:09] VITALS: BP 111/64
[2018-01-26 15:07] VITALS: BP 104/65
[2018-01-26 17:58] VITALS: BP 104/61
[2018-01-26 21:05] VITALS: BP 110/68
[2018-01-26] MEDS: ATORVASTATIN 20 MG TABLET PO SCH (22:30)
[2018-01-27 01:20] VITALS: BP 115/73
[2018-01-27] MEDS: METOPROLOL TARTRATE 50 MG TABLET PO SCH (06:26)
[2018-01-27 06:55] VITALS: BP 117/74
[2018-01-27] MEDS: INSULIN LISPRO 100 UNITS/ML, PEN SQ-INSULIN SCH (09:00)
[2018-01-27] MEDS: TEMPLATE NON-FORMULARY MED. (Amlodipine Besylate (Amlodipine Besylate**) 10 MG) PO SCH (09:00)
[2018-01-27] MEDS ORDERED: IRON DEXTRAN COMPLEX 25 MG in SODIUM CHLORIDE 0.9% 50 ML IV ONE (10:00)
[2018-01-27] MEDS ORDERED: IRON DEXTRAN COMPLEX 1,000 MG in SODIUM CHLORIDE 0.9% 250 ML IV ONE (10:00)
[2018-01-27] MEDS ORDERED: ARANESP 200 MCG/ML **ESRD SQ SCH (10:00)
[2018-01-27] MEDS: ONDANSETRON ODT 4 MG PO PRN (11:32)
[2018-01-27] MEDS: SODIUM CHLORIDE FLUSH 10ML SYR IVF SCH ×2 (11:57→22:43)
[2018-01-27] MEDS: HEPARIN 5,000 UNITS/ML, 1ML SQ SCH ×3 (11:58→20:44)
[2018-01-27] MEDS: FAMOTIDINE 20 MG TABLET PO SCH (11:58)
[2018-01-27] MEDS: IRON SUCROSE COMPLEX 100MG/5ML IV SCH (12:00)
[2018-01-27 14:00] VITALS: BP 112/63
[2018-01-27] MEDS: HEMORRHOIDAL OINT, 28 GM (PREP H) RC PRN (17:21)
[2018-01-27 20:27] VITALS: BP 107/58
[2018-01-27] MEDS: ATORVASTATIN 20 MG TABLET PO SCH (20:44)
[2018-01-28 01:12] VITALS: BP 96/62
[2018-01-28 05:14] LABS: ANION GAP 8 mmol/L (5-15); CALCIUM 8.8 mg/dL (8.5-10.1); CHLORIDE 98 mmol/L (98-107)
[2018-01-28 05:16] LABS: CREATININE 3.74 mg/dL (0.55-1.02)
[2018-01-28 08:46] VITALS: BP 101/55
[2018-01-28] MEDS: FAMOTIDINE 20 MG TABLET PO SCH (08:57)
[2018-01-28] MEDS: INSULIN LISPRO 100 UNITS/ML, PEN SQ-INSULIN SCH (09:00)
[2018-01-28] MEDS: HEPARIN 5,000 UNITS/ML, 1ML SQ SCH ×3 (09:00→19:57)
[2018-01-28 09:20] LABS: BASOPHILS # (AUTO) 0.03 x10^3/uL (0-0.1); BASOPHILS % (AUTO) 0 % (0-1); EOSINOPHILS # (AUTO) 0.01 x10^3/uL (0-0.4); EOSINOPHILS % (AUTO) 0 % (1-7); LYMPHOCYTES # (AUTO) 1.92 x10^3/uL (1-3.4); LYMPHOCYTES % (AUTO) 16 % (22-44); MD NO; MEAN CORPUSCULAR HEMOGLOBIN 27.6 pg (27.0-34.8); MEAN CORPUSCULAR HGB CONC 32.9 g/dL (32.4-35.8); MEAN CORPUSCULAR VOLUME 84.1 fL (80-100); MEAN PLATELET VOLUME 7.6 fL (7.4-10.4); MONOCYTES # (AUTO) 1.37 x10^3/uL (0.2-0.8); MONOCYTES % (AUTO) 11 % (2-9); NEUTROPHILS # (AUTO) 8.72 x10^3/uL (1.8-6.8); NEUTROPHILS % (AUTO) 72 % (42-75); PLATELET COUNT 427 x10^3/uL (130-400); RED BLOOD COUNT 3.35 x10^6/uL (3.82-5.3); RED CELL DISTRIBUTION WIDTH 15.2 % (9.6-15.2)
[2018-01-28] MEDS ORDERED: HEPARIN 5,000 UNITS/ML, 1ML ONE (10:11)
[2018-01-28] MEDS ORDERED: HEPARIN 1,000 UNITS/ML, 10ML ONE (10:11)
[2018-01-28] MEDS ORDERED: BUPIVACAINE/PF 0.25% ONE (10:11)
[2018-01-28] MEDS ORDERED: THROMBIN 5,000 UNIT VIAL TP ONE (10:11)
[2018-01-28] MEDS ORDERED: PROTAMINE SULFATE 10 MG/ML, 5ML ONE (10:11)
[2018-01-28] MEDS: ACETAMINOPHEN 325 MG TABLET PO PRN (10:44)
[2018-01-28] MEDS: IRON SUCROSE COMPLEX 100MG/5ML IV SCH (10:46)
[2018-01-28] MEDS: SODIUM CHLORIDE FLUSH 10ML SYR IVF SCH ×2 (11:05→19:56)
[2018-01-28 14:22] VITALS: BP 130/79
[2018-01-28 15:04] LABS: CULTURE INDICATED? YES; MICROSCOPIC INDICATED
[2018-01-28 15:15] LABS: HCG UR SG 1.021 (1.003-1.030)
[2018-01-28] MEDS ORDERED: MIDAZOLAM 1 MG/ML, 2ML ONE (16:05)
[2018-01-28] MEDS ORDERED: EPHEDRINE 50 MG/ML, 1ML ONE (16:29)
[2018-01-28] MEDS ORDERED: CEFAZOLIN 1,000 MG ONE (16:29)
[2018-01-28] MEDS ORDERED: PROPOFOL 10 MG/ML, 20ML ONE (16:29)
[2018-01-28] MEDS ORDERED: ACETAMINOPHEN 325 MG TABLET PO PRN (18:00)
[2018-01-28] MEDS ORDERED: ONDANSETRON ODT 8 MG PO PRN (18:00)
[2018-01-28] MEDS ORDERED: FENTANYL PF 100 MCG/2ML IV PRN (18:00)
[2018-01-28] MEDS: CEFTRIAXONE PMX 2GM/50ML 50 ML IV SCH (19:56)
[2018-01-28] MEDS: ATORVASTATIN 20 MG TABLET PO SCH (19:57)
[2018-01-28 20:35] VITALS: BP 104/59
[2018-01-29] VITALS: BP 99/62
[2018-01-29 04:00] VITALS: BP 109/59
[2018-01-29 08:01] VITALS: BP 106/62
[2018-01-29] MEDS: INSULIN LISPRO 100 UNITS/ML, PEN SQ-INSULIN SCH (09:00)
[2018-01-29] MEDS: IRON SUCROSE COMPLEX 100MG/5ML IV SCH (09:25)
[2018-01-29] MEDS: HEPARIN 5,000 UNITS/ML, 1ML SQ SCH ×3 (09:25→22:00)
[2018-01-29] MEDS: FAMOTIDINE 20 MG TABLET PO SCH (09:25)
[2018-01-29] MEDS: SODIUM CHLORIDE FLUSH 10ML SYR IVF SCH ×2 (09:25→22:00)
[2018-01-29 12:44] VITALS: BP 121/65
[2018-01-29] MEDS: HYDROcodone/APAP 5/325 TABLET PO PRN (13:12)
[2018-01-29 16:19] VITALS: BP 129/66
[2018-01-29] MEDS: CEFTRIAXONE PMX 2GM/50ML 50 ML IV SCH (19:21)
[2018-01-29 20:00] VITALS: BP 102/60
[2018-01-29] MEDS: ATORVASTATIN 20 MG TABLET PO SCH (22:00)
[2018-01-30 03:03] VITALS: BP 116/68
[2018-01-30 06:32] VITALS: BP 121/58
[2018-01-30] MEDS: HEPARIN 5,000 UNITS/ML, 1ML SQ SCH ×3 (09:00→19:33)
[2018-01-30] MEDS: INSULIN LISPRO 100 UNITS/ML, PEN SQ-INSULIN SCH (09:00)
[2018-01-30 12:54] VITALS: BP 143/67
[2018-01-30] MEDS: CHOLECALCIFEROL 1,000 UNIT TABLET PO SCH (13:04)
[2018-01-30] MEDS: IRON SUCROSE COMPLEX 100MG/5ML IV SCH (13:04)
[2018-01-30] MEDS: FAMOTIDINE 20 MG TABLET PO SCH (13:04)
[2018-01-30] MEDS: SODIUM CHLORIDE FLUSH 10ML SYR IVF SCH ×2 (13:04→23:02)
[2018-01-30] MEDS: CEFTRIAXONE PMX 2GM/50ML 50 ML IV SCH (19:33)
[2018-01-30] MEDS: ATORVASTATIN 20 MG TABLET PO SCH (19:33)
[2018-01-30 20:03] VITALS: BP 109/62
[2018-01-31 02:17] VITALS: BP 127/67
[2018-01-31 05:03] LABS: BASOPHILS # (AUTO) 0.03 x10^3/uL (0-0.1); BASOPHILS % (AUTO) 0 % (0-1); EOSINOPHILS # (AUTO) 0.12 x10^3/uL (0-0.4); EOSINOPHILS % (AUTO) 1 % (1-7); LYMPHOCYTES # (AUTO) 1.45 x10^3/uL (1-3.4); LYMPHOCYTES % (AUTO) 15 % (22-44); MD NO; MEAN CORPUSCULAR HEMOGLOBIN 27.4 pg (27.0-34.8); MEAN CORPUSCULAR HGB CONC 32.2 g/dL (32.4-35.8); MEAN PLATELET VOLUME 7.5 fL (7.4-10.4); MONOCYTES # (AUTO) 0.98 x10^3/uL (0.2-0.8); MONOCYTES % (AUTO) 10 % (2-9); NEUTROPHILS # (AUTO) 7.45 x10^3/uL (1.8-6.8); NEUTROPHILS % (AUTO) 74 % (42-75); PLATELET COUNT 403 x10^3/uL (130-400); RED BLOOD COUNT 3.42 x10^6/uL (3.82-5.3); RED CELL DISTRIBUTION WIDTH 15.3 % (9.6-15.2)
[2018-01-31 05:24] LABS: CHLORIDE 100 mmol/L (98-107)
[2018-01-31 06:12] LABS: ALBUMIN 1.1 g/dL (3.4-5.0); ALKALINE PHOSPHATASE 236 U/L (45-117); ANION GAP 12 mmol/L (5-15); BILIRUBIN,TOTAL 0.8 mg/dL (0.2-1.0); CALCIUM 8.4 mg/dL (8.5-10.1); CREATININE 3.17 mg/dL (0.55-1.02); TOTAL PROTEIN 6.5 g/dL (6.4-8.2)
[2018-01-31 06:14] LABS: ALANINE AMINOTRANSFERASE < 6 U/L (12-78)
[2018-01-31 08:04] VITALS: BP 127/76
[2018-01-31] MEDS: INSULIN LISPRO 100 UNITS/ML, PEN SQ-INSULIN SCH (08:38)
[2018-01-31] MEDS: CHOLECALCIFEROL 1,000 UNIT TABLET PO SCH (08:50)
[2018-01-31] MEDS: SODIUM CHLORIDE FLUSH 10ML SYR IVF SCH ×2 (08:50→20:13)
[2018-01-31] MEDS: FAMOTIDINE 20 MG TABLET PO SCH (08:50)
[2018-01-31] MEDS: SULFAMETH./TRIMETHOPRIM DS 800MG/160MG TABLET PO SCH ×2 (08:50→20:13)
[2018-01-31] MEDS: HEPARIN 5,000 UNITS/ML, 1ML SQ SCH ×3 (08:50→20:13)
[2018-01-31 12:38] VITALS: BP 103/62
[2018-01-31] MEDS: IRON SUCROSE COMPLEX 100MG/5ML IV SCH (13:14)
[2018-01-31 20:02] VITALS: BP 104/70
[2018-01-31] MEDS: ATORVASTATIN 20 MG TABLET PO SCH (20:12)
[2018-01-31] MEDS: CEFTRIAXONE PMX 2GM/50ML 50 ML IV SCH (20:13)
[2018-02-01 00:12] VITALS: BP 86/53
[2018-02-01 00:30] VITALS: BP 98/65
[2018-02-01 05:34] LABS: ALBUMIN 1.1 g/dL (3.4-5.0); ANION GAP 11 mmol/L (5-15); CALCIUM 8.5 mg/dL (8.5-10.1); CHLORIDE 97 mmol/L (98-107)
[2018-02-01 05:39] LABS: ALKALINE PHOSPHATASE 269 U/L (45-117); BILIRUBIN,TOTAL 1.1 mg/dL (0.2-1.0); CREATININE 4.04 mg/dL (0.55-1.02); TOTAL PROTEIN 6.6 g/dL (6.4-8.2)
[2018-02-01 05:44] LABS: ALANINE AMINOTRANSFERASE < 6 U/L (12-78)
[2018-02-01 07:05] VITALS: BP 169/78
[2018-02-01] MEDS ORDERED: ALBUMIN HUMAN 25% 50 ML IV PRN (09:00)
[2018-02-01] MEDS ORDERED: ALBUMIN HUMAN 25% 100 ML IV PRN (09:00)
[2018-02-01] MEDS: HEPARIN 5,000 UNITS/ML, 1ML SQ SCH ×3 (12:26→20:59)
[2018-02-01] MEDS: SODIUM CHLORIDE FLUSH 10ML SYR IVF SCH ×2 (12:26→20:55)
[2018-02-01] MEDS: SULFAMETH./TRIMETHOPRIM DS 800MG/160MG TABLET PO SCH ×2 (12:26→20:54)
[2018-02-01] MEDS: FAMOTIDINE 20 MG TABLET PO SCH (12:26)
[2018-02-01] MEDS: INSULIN LISPRO 100 UNITS/ML, PEN SQ-INSULIN SCH (12:28)
[2018-02-01 14:07] VITALS: BP 132/74
[2018-02-01 19:31] VITALS: BP 131/80
[2018-02-01] MEDS: ATORVASTATIN 20 MG TABLET PO SCH (20:54)
[2018-02-01] MEDS: ACETAMINOPHEN 325 MG TABLET PO PRN (20:54)
[2018-02-01] MEDS: CEFTRIAXONE PMX 2GM/50ML 50 ML IV SCH (20:54)
[2018-02-02] MEDS: ONDANSETRON 2MG/ML, 2ML IVPush PRN (01:40)
[2018-02-02 01:48] VITALS: BP 168/75
[2018-02-02 03:00] VITALS: BP 139/75
[2018-02-02] MEDS: ACETAMINOPHEN 325 MG TABLET PO PRN (05:51)
[2018-02-02 05:57] LABS: BASOPHILS # (AUTO) 0.02 x10^3/uL (0-0.1); BASOPHILS % (AUTO) 0 % (0-1); EOSINOPHILS % (AUTO) 1 % (1-7); LYMPHOCYTES % (AUTO) 15 % (22-44); MD NO; MEAN CORPUSCULAR HEMOGLOBIN 27.6 pg (27.0-34.8); MEAN CORPUSCULAR HGB CONC 32.6 g/dL (32.4-35.8); MEAN CORPUSCULAR VOLUME 84.7 fL (80-100); MEAN PLATELET VOLUME 7.5 fL (7.4-10.4); MONOCYTES # (AUTO) 1.07 x10^3/uL (0.2-0.8); MONOCYTES % (AUTO) 10 % (2-9); NEUTROPHILS # (AUTO) 8.25 x10^3/uL (1.8-6.8); NEUTROPHILS % (AUTO) 75 % (42-75); PLATELET COUNT 431 x10^3/uL (130-400); RED BLOOD COUNT 3.47 x10^6/uL (3.82-5.3); RED CELL DISTRIBUTION WIDTH 15.4 % (9.6-15.2)
[2018-02-02 06:09] LABS: CHLORIDE 96 mmol/L (98-107)
[2018-02-02 06:59] LABS: ALANINE AMINOTRANSFERASE 6 U/L (12-78); ALBUMIN 1.5 g/dL (3.4-5.0); ALKALINE PHOSPHATASE 257 U/L (45-117); ANION GAP 13 mmol/L (5-15); BILIRUBIN,TOTAL 1.5 mg/dL (0.2-1.0); CALCIUM 8.6 mg/dL (8.5-10.1); CREATININE 3.05 mg/dL (0.55-1.02); TOTAL PROTEIN 6.8 g/dL (6.4-8.2)
[2018-02-02 07:20] VITALS: BP 122/74
[2018-02-02] MEDS: SULFAMETH./TRIMETHOPRIM DS 800MG/160MG TABLET PO SCH ×2 (08:49→21:12)
[2018-02-02] MEDS: SODIUM CHLORIDE FLUSH 10ML SYR IVF SCH ×2 (08:49→21:13)
[2018-02-02] MEDS: FAMOTIDINE 20 MG TABLET PO SCH (08:49)
[2018-02-02] MEDS: HEPARIN 5,000 UNITS/ML, 1ML SQ SCH ×3 (08:53→21:15)
[2018-02-02] MEDS: INSULIN LISPRO 100 UNITS/ML, PEN SQ-INSULIN SCH (08:53)
[2018-02-02] MEDS ORDERED: CHOLECALCIFEROL 1,000 UNIT TABLET PO SCH (09:00)
[2018-02-02] MEDS ORDERED: LORATADINE 10 MG TABLET PO PRN (11:00)
[2018-02-02] MEDS ORDERED: ONDANSETRON 2MG/ML, 2ML ONE ×2 (13:12→14:51)
[2018-02-02] MEDS ORDERED: BUPIVACAINE/PF 0.25% ONE (13:12)
[2018-02-02] MEDS ORDERED: DEXAMETHASONE 4 MG/ML, 1ML ONE ×2 (13:12→14:51)
[2018-02-02] MEDS ORDERED: HEPARIN 1,000 UNITS/ML, 10ML ONE (13:12)
[2018-02-02] MEDS ORDERED: PROPOFOL 10 MG/ML, 20ML ONE ×2 (13:12→14:51)
[2018-02-02] MEDS ORDERED: CEFAZOLIN 1,000 MG ONE ×2 (13:12→14:51)
[2018-02-02] MEDS ORDERED: FENTANYL PF 100 MCG/2ML ONE (13:12)
[2018-02-02] MEDS ORDERED: THROMBIN 5,000 UNIT VIAL TP ONE (13:12)
[2018-02-02] MEDS ORDERED: PROTAMINE SULFATE 10 MG/ML, 5ML ONE (13:12)
[2018-02-02] MEDS ORDERED: MIDAZOLAM 1 MG/ML, 2ML ONE (13:12)
[2018-02-02] MEDS ORDERED: LIDOCAINE GEL 2%, 5ML ONE (13:50)
[2018-02-02] MEDS ORDERED: DIAZEPAM 5 MG/ML, 2ML IVPush PRN (15:00)
[2018-02-02] MEDS ORDERED: EPHEDRINE 50 MG/ML, 1ML IM PRN (15:00)
[2018-02-02] MEDS ORDERED: SCOPOLAMINE PATCH, 1.5MG PATCH.TD72 TD PRN (15:00)
[2018-02-02] MEDS ORDERED: OXYcodone 5 MG/5 ML ORAL.SOL UDC PO PRN (15:00)
[2018-02-02] MEDS ORDERED: MIDAZOLAM 1 MG/ML, 2ML IV PRN (15:00)
[2018-02-02] MEDS ORDERED: LABETALOL 5MG/ML, 20ML IV PRN (15:00)
[2018-02-02] MEDS ORDERED: HYDROmorphone 1 MG/ML, 1ML IV PRN (15:00)
[2018-02-02] MEDS ORDERED: MORPHINE SULFATE 4 MG/ML, 1ML IVPush PRN (15:00)
[2018-02-02] MEDS ORDERED: ACETAMINOPHEN 325 MG TABLET PO PRN (15:00)
[2018-02-02] MEDS ORDERED: ALBUTEROL/IPRATROPIUM 2.5MG/0.5MG, 3 ML NPPB PRN (15:00)
[2018-02-02] MEDS ORDERED: hydrALAzine 20 MG/ML, 1ML IV PRN (15:00)
[2018-02-02] MEDS ORDERED: FENTANYL PF 100 MCG/2ML IV PRN (15:00)
[2018-02-02] MEDS ORDERED: PROMETHAZINE 25 MG/ML, 1ML IV PRN (15:00)
[2018-02-02] MEDS ORDERED: SUCCINYLCHOLINE 20 MG/ML, 10ML ONE (16:01)
[2018-02-02 17:34] VITALS: BP 124/70
[2018-02-02 19:04] VITALS: BP 119/64
[2018-02-02] MEDS: ATORVASTATIN 20 MG TABLET PO SCH (21:12)
[2018-02-03 00:50] VITALS: BP 137/75
[2018-02-03 04:02] VITALS: BP 150/76
[2018-02-03 06:08] LABS: CHLORIDE 97 mmol/L (98-107)
[2018-02-03 07:14] LABS: ALKALINE PHOSPHATASE 221 U/L (45-117); ANION GAP 12 mmol/L (5-15); BILIRUBIN,TOTAL 0.8 mg/dL (0.2-1.0); CALCIUM 8.6 mg/dL (8.5-10.1); TOTAL PROTEIN 6.8 g/dL (6.4-8.2)
[2018-02-03 07:18] LABS: ALBUMIN 1.4 g/dL (3.4-5.0); CREATININE 4.44 mg/dL (0.55-1.02)
[2018-02-03 08:12] LABS: ALANINE AMINOTRANSFERASE 7 U/L (12-78)
[2018-02-03] MEDS: HEPARIN 5,000 UNITS/ML, 1ML SQ SCH ×3 (09:00→21:09)
[2018-02-03] MEDS: SODIUM CHLORIDE FLUSH 10ML SYR IVF SCH ×2 (09:00→21:09)
[2018-02-03] MEDS ORDERED: ARANESP 100 MCG/ML **ESRD IV SCH (10:00)
[2018-02-03] MEDS: SODIUM THIOSULFATE 25 GM in SODIUM CHLORIDE 0.9% 100 ML IV SCH (10:16)
[2018-02-03] MEDS: SULFAMETH./TRIMETHOPRIM DS 800MG/160MG TABLET PO SCH ×2 (12:53→21:09)
[2018-02-03] MEDS: FAMOTIDINE 20 MG TABLET PO SCH (12:53)
[2018-02-03 14:30] VITALS: BP 101/64
[2018-02-03] MEDS ORDERED: ARANESP 100 MCG/ML **ESRD SQ SCH ×2 (15:30→15:32)
[2018-02-03] MEDS: INSULIN LISPRO 100 UNITS/ML, PEN SQ-INSULIN SCH (16:03)
[2018-02-03 19:39] VITALS: BP 145/76
[2018-02-03] MEDS: ATORVASTATIN 20 MG TABLET PO SCH (21:09)
[2018-02-04 04:15] VITALS: BP 123/62
[2018-02-04 07:29] VITALS: BP 124/69
[2018-02-04] MEDS: ONDANSETRON ODT 4 MG PO PRN ×2 (07:58→23:52)
[2018-02-04] MEDS: FAMOTIDINE 20 MG TABLET PO SCH (08:53)
[2018-02-04] MEDS: HEPARIN 5,000 UNITS/ML, 1ML SQ SCH ×3 (08:53→20:14)
[2018-02-04] MEDS: SULFAMETH./TRIMETHOPRIM DS 800MG/160MG TABLET PO SCH ×2 (08:53→20:14)
[2018-02-04] MEDS: INSULIN LISPRO 100 UNITS/ML, PEN SQ-INSULIN SCH (09:00)
[2018-02-04] MEDS: SODIUM CHLORIDE FLUSH 10ML SYR IVF SCH ×2 (09:01→20:15)
[2018-02-04 14:17] VITALS: BP 118/70
[2018-02-04] MEDS: ATORVASTATIN 20 MG TABLET PO SCH (20:14)
[2018-02-04] MEDS: HYDROcodone/APAP 5/325 TABLET PO PRN (20:14)
[2018-02-04 21:08] VITALS: BP 109/53
[2018-02-05 02:32] VITALS: BP 125/65
[2018-02-05 07:16] VITALS: BP 114/70
[2018-02-05] MEDS: SODIUM CHLORIDE FLUSH 10ML SYR IVF SCH ×2 (08:55→21:20)
[2018-02-05] MEDS: ONDANSETRON 2MG/ML, 2ML IVPush PRN (08:55)
[2018-02-05] MEDS: HEPARIN 5,000 UNITS/ML, 1ML SQ SCH ×3 (08:56→21:21)
[2018-02-05] MEDS: FAMOTIDINE 20 MG TABLET PO SCH (08:56)
[2018-02-05] MEDS: INSULIN LISPRO 100 UNITS/ML, PEN SQ-INSULIN SCH (09:00)
[2018-02-05 15:50] VITALS: BP 124/46
[2018-02-05] MEDS: HYDROcodone/APAP 5/325 TABLET PO PRN (18:10)
[2018-02-05 19:47] VITALS: BP 120/63
[2018-02-05] MEDS: ATORVASTATIN 20 MG TABLET PO SCH (21:21)
[2018-02-05] MEDS: ACETAMINOPHEN 325 MG TABLET PO PRN (21:21)
[2018-02-06 02:45] VITALS: BP 140/65
[2018-02-06 05:05] LABS: BASOPHILS # (AUTO) 0.04 x10^3/uL (0-0.1); BASOPHILS % (AUTO) 0 % (0-1); EOSINOPHILS # (AUTO) 0.09 x10^3/uL (0-0.4); EOSINOPHILS % (AUTO) 1 % (1-7); LYMPHOCYTES % (AUTO) 23 % (22-44); MD NO; MEAN CORPUSCULAR HEMOGLOBIN 27.5 pg (27.0-34.8); MEAN CORPUSCULAR HGB CONC 32.5 g/dL (32.4-35.8); MEAN CORPUSCULAR VOLUME 84.6 fL (80-100); MEAN PLATELET VOLUME 7.3 fL (7.4-10.4); MONOCYTES # (AUTO) 0.97 x10^3/uL (0.2-0.8); MONOCYTES % (AUTO) 10 % (2-9); NEUTROPHILS # (AUTO) 6.24 x10^3/uL (1.8-6.8); NEUTROPHILS % (AUTO) 66 % (42-75); PLATELET COUNT 404 x10^3/uL (130-400); RED BLOOD COUNT 3.12 x10^6/uL (3.82-5.3)
[2018-02-06 05:18] LABS: CHLORIDE 96 mmol/L (98-107)
[2018-02-06 05:28] LABS: ALANINE AMINOTRANSFERASE 7 U/L (12-78); ALBUMIN 1.3 g/dL (3.4-5.0); ALKALINE PHOSPHATASE 243 U/L (45-117); ANION GAP 11 mmol/L (5-15); BILIRUBIN,TOTAL 0.9 mg/dL (0.2-1.0); CALCIUM 8.7 mg/dL (8.5-10.1); CREATININE 4.74 mg/dL (0.55-1.02)
[2018-02-06] MEDS: HEPARIN 5,000 UNITS/ML, 1ML SQ SCH ×3 (07:49→20:06)
[2018-02-06] MEDS: SODIUM CHLORIDE FLUSH 10ML SYR IVF SCH ×2 (07:50→20:06)
[2018-02-06] MEDS: INSULIN LISPRO 100 UNITS/ML, PEN SQ-INSULIN SCH (07:50)
[2018-02-06] MEDS: FAMOTIDINE 20 MG TABLET PO SCH (07:50)
[2018-02-06 07:59] VITALS: BP 130/72
[2018-02-06 13:30] VITALS: BP 138/80
[2018-02-06] MEDS: SODIUM THIOSULFATE 25 GM in SODIUM CHLORIDE 0.9% 100 ML IV SCH (14:23)
[2018-02-06] MEDS: ONDANSETRON 2MG/ML, 2ML IVPush PRN ×2 (15:54→21:59)
[2018-02-06 19:48] VITALS: BP 145/78
[2018-02-06] MEDS ORDERED: PROMETHAZINE 25 MG/ML, 1ML IM ONE (20:00)
[2018-02-06] MEDS: ATORVASTATIN 20 MG TABLET PO SCH (20:06)
[2018-02-07] VITALS (7 sets, daily range): BP systolic 171–190; BP diastolic 80–92
[2018-02-07] MEDS ORDERED: METOCLOPRAMIDE 5 MG/ML, 2ML IVPush PRN (00:30)
[2018-02-07] MEDS: METOCLOPRAMIDE 5 MG/ML, 2ML IVPush PRN ×3 (00:50→21:08)
[2018-02-07] MEDS: ONDANSETRON 2MG/ML, 2ML IVPush PRN (04:40)
[2018-02-07 05:45] LABS: BASOPHILS % (AUTO) 0 % (0-1); EOSINOPHILS % (AUTO) 0 % (1-7); LYMPHOCYTES # (AUTO) 0.88 x10^3/uL (1-3.4); LYMPHOCYTES % (AUTO) 7 % (22-44); MD NO; MEAN CORPUSCULAR HGB CONC 32.6 g/dL (32.4-35.8); MEAN PLATELET VOLUME 7.2 fL (7.4-10.4); MONOCYTES # (AUTO) 0.43 x10^3/uL (0.2-0.8); MONOCYTES % (AUTO) 4 % (2-9); NEUTROPHILS # (AUTO) 10.96 x10^3/uL (1.8-6.8); NEUTROPHILS % (AUTO) 89 % (42-75); PLATELET COUNT 514 x10^3/uL (130-400); RED BLOOD COUNT 3.69 x10^6/uL (3.82-5.3); RED CELL DISTRIBUTION WIDTH 15.6 % (9.6-15.2)
[2018-02-07 05:46] LABS: CHLORIDE 96 mmol/L (98-107)
[2018-02-07 05:54] LABS: ALANINE AMINOTRANSFERASE 9 U/L (12-78); ALBUMIN 1.6 g/dL (3.4-5.0); ALKALINE PHOSPHATASE 301 U/L (45-117); ANION GAP 26 mmol/L (5-15); BILIRUBIN,TOTAL 1.1 mg/dL (0.2-1.0); CALCIUM 8.9 mg/dL (8.5-10.1); CREATININE 3.23 mg/dL (0.55-1.02); TOTAL PROTEIN 7.3 g/dL (6.4-8.2)
[2018-02-07] MEDS: hydrALAzine 20 MG/ML, 1ML IVPush PRN ×3 (06:03→21:10)
[2018-02-07] MEDS: HEPARIN 5,000 UNITS/ML, 1ML SQ SCH ×3 (08:08→21:07)
[2018-02-07] MEDS: FAMOTIDINE 20 MG TABLET PO SCH (08:09)
[2018-02-07] MEDS: INSULIN LISPRO 100 UNITS/ML, PEN SQ-INSULIN SCH (08:09)
[2018-02-07] MEDS: SODIUM CHLORIDE FLUSH 10ML SYR IVF SCH ×2 (08:09→21:00)
[2018-02-07] MEDS: SODIUM BICARBONATE 650 MG TABLET PO SCH ×3 (11:03→21:07)
[2018-02-07] MEDS ORDERED: AMLODIPINE 5 MG TABLET PO ONE (11:30)
[2018-02-07] MEDS: ONDANSETRON ODT 4 MG PO PRN (17:42)
[2018-02-07] MEDS: ATORVASTATIN 20 MG TABLET PO SCH (21:07)
[2018-02-08 01:18] VITALS: BP 172/93
[2018-02-08 03:30] VITALS: BP 170/95
[2018-02-08 06:05] LABS: CHLORIDE 97 mmol/L (98-107)
[2018-02-08 06:12] LABS: ALANINE AMINOTRANSFERASE 11 U/L (12-78); ALBUMIN 1.7 g/dL (3.4-5.0); ALKALINE PHOSPHATASE 268 U/L (45-117); ANION GAP 19 mmol/L (5-15); BILIRUBIN,TOTAL 0.9 mg/dL (0.2-1.0); CALCIUM 9.3 mg/dL (8.5-10.1); TOTAL PROTEIN 7.2 g/dL (6.4-8.2)
[2018-02-08 07:18] LABS: CULTURE INDICATED? YES; MICROSCOPIC INDICATED
[2018-02-08 07:37] VITALS: BP 182/84
[2018-02-08] MEDS: HEPARIN 5,000 UNITS/ML, 1ML SQ SCH ×2 (07:52→17:50)
[2018-02-08] MEDS: FAMOTIDINE 20 MG TABLET PO SCH (07:52)
[2018-02-08] MEDS: SODIUM BICARBONATE 650 MG TABLET PO SCH (07:52)
[2018-02-08] MEDS: SODIUM CHLORIDE FLUSH 10ML SYR IVF SCH ×2 (07:52→20:11)
[2018-02-08] MEDS ORDERED: SODIUM THIOSULFATE IV SCH (09:00)
[2018-02-08] MEDS ORDERED: SODIUM CHLORIDE 0.9% IV SCH (09:00)
[2018-02-08] MEDS: INSULIN LISPRO 100 UNITS/ML, PEN SQ-INSULIN SCH (09:32)
[2018-02-08] MEDS: hydrALAzine 20 MG/ML, 1ML IVPush PRN (09:32)
[2018-02-08] MEDS ORDERED: AMLODIPINE 5 MG TABLET PO ONE ×2 (10:00→21:00)
[2018-02-08 13:21] VITALS: BP 159/85
[2018-02-08 15:39] VITALS: BP 126/77
[2018-02-08 19:20] VITALS: BP 167/89
[2018-02-08] MEDS: ATORVASTATIN 20 MG TABLET PO SCH (20:10)
[2018-02-09] VITALS (9 sets, daily range): BP systolic 86–173; BP diastolic 57–95
[2018-02-09] MEDS: HEPARIN 5,000 UNITS/ML, 1ML SQ SCH ×2 (01:11→12:30)
[2018-02-09 05:56] LABS: ALANINE AMINOTRANSFERASE 17 U/L (12-78); ALBUMIN 1.8 g/dL (3.4-5.0); ANION GAP 11 mmol/L (5-15); CALCIUM 9.4 mg/dL (8.5-10.1); CHLORIDE 93 mmol/L (98-107); CREATININE 3.06 mg/dL (0.55-1.02)
[2018-02-09 05:59] LABS: ALKALINE PHOSPHATASE 291 U/L (45-117); BILIRUBIN,TOTAL 1.1 mg/dL (0.2-1.0); TOTAL PROTEIN 7.2 g/dL (6.4-8.2)
[2018-02-09] MEDS ORDERED: METO25TA35 PO (07:25)
[2018-02-09] MEDS: INSULIN LISPRO 100 UNITS/ML, PEN SQ-INSULIN SCH (07:30)
[2018-02-09] MEDS: FAMOTIDINE 20 MG TABLET PO SCH (12:30)
[2018-02-09] MEDS: SODIUM CHLORIDE FLUSH 10ML SYR IVF SCH (12:31)
[2018-02-09] MEDS: ONDANSETRON ODT 4 MG PO PRN (12:41)
[2018-02-09] MEDS ORDERED: AMLODIPINE 5 MG TABLET PO SCH (21:00)
== END 2018-02-09 15:41 | DRG 673 ==
LOC: ED 12:17 → EDIP 13:01 → 4NOR 14:41 → 4WST 02-06 12:54
PROVIDERS: ADMIT Internal Medicine; ATTEND Internal Medicine
PROC: 0HB7XZX Excision of Abdomen Skin, External Approach, Diagnostic (ICD-10-PCS; 2018-01-19)
PROC: 5A1D70Z Performance of Urinary Filtration, Intermittent, Less than 6 Hours Per Day (ICD-10-PCS; 2018-01-25)
PROC: 0JH60WZ Insertion of Totally Implantable Vascular Access Device into Chest Subcutaneous Tissue and Fascia, Open Approach (ICD-10-PCS; 2018-01-25)
PROC: 02HV33Z Insertion of Infusion Device into Superior Vena Cava, Percutaneous Approach (ICD-10-PCS; 2018-01-25)
PROC: B5181ZA Fluoroscopy of Superior Vena Cava using Low Osmolar Contrast, Guidance (ICD-10-PCS; 2018-01-25)
PROC: B548ZZA Ultrasonography of Superior Vena Cava, Guidance (ICD-10-PCS; 2018-01-25)
PROC: 5A1D70Z Performance of Urinary Filtration, Intermittent, Less than 6 Hours Per Day (ICD-10-PCS; 2018-01-26)
PROC: 5A1D70Z Performance of Urinary Filtration, Intermittent, Less than 6 Hours Per Day (ICD-10-PCS; 2018-01-27)
PROC: 031C0ZF Bypass Left Radial Artery to Lower Arm Vein, Open Approach (ICD-10-PCS; 2018-01-28)
PROC: 5A1D70Z Performance of Urinary Filtration, Intermittent, Less than 6 Hours Per Day (ICD-10-PCS; 2018-01-30)
PROC: 5A1D70Z Performance of Urinary Filtration, Intermittent, Less than 6 Hours Per Day (ICD-10-PCS; 2018-02-01)
PROC: 03180ZD Bypass Left Brachial Artery to Upper Arm Vein, Open Approach (ICD-10-PCS; principal; 2018-02-02 14:00)
PROC: 5A1D70Z Performance of Urinary Filtration, Intermittent, Less than 6 Hours Per Day (ICD-10-PCS; 2018-02-03)
PROC: 5A1D70Z Performance of Urinary Filtration, Intermittent, Less than 6 Hours Per Day (ICD-10-PCS; 2018-02-06)
PROC: 5A1D70Z Performance of Urinary Filtration, Intermittent, Less than 6 Hours Per Day (ICD-10-PCS; 2018-02-08)
PROC: 5A1D70Z Performance of Urinary Filtration, Intermittent, Less than 6 Hours Per Day (ICD-10-PCS; 2018-02-09)
DX: I12.0 Hypertensive chronic kidney disease with stage 5 chronic kidney disease or end stage renal disease (principal); E43 Unspecified severe protein-calorie malnutrition; N18.6 End stage renal disease; N17.9 Acute kidney failure, unspecified; E87.1 Hypo-osmolality and hyponatremia; E87.2 Acidosis; N39.0 Urinary tract infection, site not specified; Z68.41 Body mass index [BMI] 40.0-44.9, adult; E87.5 Hyperkalemia; F41.9 Anxiety disorder, unspecified; E86.1 Hypovolemia; B95.61 Methicillin susceptible Staphylococcus aureus infection as the cause of diseases classified elsewhere; D63.8 Anemia in other chronic diseases classified elsewhere; E11.21 Type 2 diabetes mellitus with diabetic nephropathy; E11.22 Type 2 diabetes mellitus with diabetic chronic kidney disease; E11.319 Type 2 diabetes mellitus with unspecified diabetic retinopathy without macular edema; E66.01 Morbid (severe) obesity due to excess calories; E78.5 Hyperlipidemia, unspecified; E83.39 Other disorders of phosphorus metabolism; E83.41 Hypermagnesemia; E83.52 Hypercalcemia; L29.9 Pruritus, unspecified; Z83.3 Family history of diabetes mellitus; Z80.1 Family history of malignant neoplasm of trachea, bronchus and lung; Z99.2 Dependence on renal dialysis; S31.109A Unspecified open wound of abdominal wall, unspecified quadrant without penetration into peritoneal cavity, initial encounter; X58.XXXA Exposure to other specified factors, initial encounter; Y93.89 Activity, other specified; Y92.89 Other specified places as the place of occurrence of the external cause; Y99.8 Other external cause status; Z88.0 Allergy status to penicillin; Z91.048 Other nonmedicinal substance allergy status; Z23 Encounter for immunization
CPT/HCPCS: 36415; 36558; 71045; 71046; 76937; 77001; 80048; 80053; 80069; 80074; 81001; 81025; 82272; 82306; 82330; 82550; 82652; 82728; 82962; 83036; 83540; 83550; 83690; 83735; 83970; 84100; 84550; 85025; 85610; 85730; 86480; 86706; 87040; 87070; 87077; 87086; 87186; 87205; 87324; 88305; 88312; 89055; 90732; 93005; 93990; 99156; 99157; 99285; J0690; J0696; J0882; J1100; J1644; J1756; J2250; J2405; J2550; J2704; J2720; J3010; J3490; J7070; P9047; Q0162; C1750; G0365; J0330; J0360; J1642; J1815; J2310; J2765

== ENCOUNTER 2018-04-27 08:51 | Day surgery (SDC) | payer OTHER ==
[~2018-04-27] VITALS: Ht 165.1 cm; Wt 110.6 kg
[~2018-04-27 08:51] MED LIST changes: +ATOR-2 PO; +FURO80TA77 PO; +HYDROXYZINE; +INSU500V SQ; +METO25TA35 PO; +SPIR25TA5 PO; +VALS320T2 PO
[2018-04-27] MEDS ORDERED: BUPIVACAINE/PF 0.5% ONE (09:13)
[2018-04-27] MEDS ORDERED: PROTAMINE SULFATE 10 MG/ML, 5ML ONE (09:13)
[2018-04-27] MEDS ORDERED: HEPARIN 5,000 UNITS/ML, 1ML ONE (09:13)
[2018-04-27] MEDS ORDERED: THROMBIN 5,000 UNIT VIAL TP ONE (09:13)
[2018-04-27] MEDS ORDERED: HEPARIN 1,000 UNITS/ML, 10ML ONE (09:13)
[2018-04-27 09:21] VITALS: BP 93/66
[2018-04-27] MEDS ORDERED: MIDAZOLAM 1 MG/ML, 2ML ONE (10:30)
[2018-04-27] MEDS ORDERED: FENTANYL PF 100 MCG/2ML ONE (10:30)
[2018-04-27] MEDS ORDERED: PROPOFOL 10 MG/ML, 20ML ONE (11:10)
[2018-04-27] MEDS ORDERED: CEFAZOLIN 1,000 MG ONE (11:10)
[2018-04-27] MEDS ORDERED: ONDANSETRON ODT 8 MG PO PRN (12:00)
[2018-04-27] MEDS ORDERED: ACETAMINOPHEN 325 MG TABLET PO PRN (12:00)
[2018-04-27] MEDS ORDERED: ALBUTEROL SULFATE 2.5 MG/3 ML NPPB PRN (12:00)
[2018-04-27] MEDS ORDERED: FENTANYL PF 100 MCG/2ML IV PRN (12:00)
[2018-04-27] MEDS ORDERED: OXYcodone 5 MG/5 ML ORAL.SOL UDC PO PRN (12:00)
[2018-04-27] MEDS ORDERED: PROMETHAZINE 25 MG/ML, 1ML IV PRN (12:00)
[2018-04-27] MEDS ORDERED: BUPIVACAINE/PF 0.25% INFIL ONE (12:11)
== END 2018-04-27 14:20 | disposition home or self-care (01) ==
LOC: OUT 08:51
PROVIDERS: ATTEND Surgery
DX: E11.22 Type 2 diabetes mellitus with diabetic chronic kidney disease (principal); I12.0 Hypertensive chronic kidney disease with stage 5 chronic kidney disease or end stage renal disease; N18.6 End stage renal disease; E66.01 Morbid (severe) obesity due to excess calories
CPT/HCPCS: 36415; 36820; 80047; 84703; J0690; J1644; J2250; J2704; J2720; J3010; J3490